=== PATIENT | male | born 2005 | race Caucasian/White ===

== ENCOUNTER 2023-10-18 06:29 | Outpatient (REF) | payer BC, SELFPAY ==
--- NOTE | ~2023-10-18 | US_ITS ---
EXAMINATION: US RETROPERITONEAL COMPLETE (RENAL) CLINICAL INFORMATION: Intermittent dysuria, history of renal calculi. COMPARISON: None available. TECHNIQUE: Real-time imaging of the kidneys and bladder. FINDINGS: RIGHT KIDNEY: 13.0 x 3.7 x 4.5 cm (SAG x AP x TRV). The kidney is normal in size, contour, and echogenicity. Renal cortical thickness is normal. No calculi or focal parenchymal lesions. No hydronephrosis. LEFT KIDNEY: 12.4 x 6.3 x 5.2 cm (SAG x AP x TRV). The kidney is normal in size, contour, and echogenicity. Renal cortical thickness is normal. No renal calculi or hydronephrosis. There is a 3.9 x 3.4 x 3.2 cm simple-appearing cyst which does not require follow-up. BLADDER: Partially distended. Bilateral ureteral jets are demonstrated. Prevoid bladder volume is 136 mL. There is no postvoid residual. The prostate volume is 19.0 mL. US/US retroperitoneal comp IMPRESSION: No evidence of obstructive uropathy. No definite evidence of medical renal disease. Left renal cyst which does not require follow-up. No postvoid residual.. Electronically signed by: Santos Carr MD 10/18/2023 05:04 PM EDT
== END 2023-10-18 06:30 | disposition home or self-care (01) ==
LOC: HO.UMASIMG 06:29
PROVIDERS: Visit Provider Family Medicine
DX: R30.0 Dysuria (principal); J30.9 Allergic rhinitis, unspecified
CPT/HCPCS: 76770